=== PATIENT | female | born 1985 ===

== ENCOUNTER 2024-08-15 08:01 | Outpatient (CLI) | payer MEDICAID ==
[2024-08-15] VITALS (24 sets, daily range): BP systolic 90–113; BP diastolic 60–75; PULSE 64–101
== END 2024-08-15 23:59 | disposition home or self-care (01) ==
LOC: CARD DIAG 08:01
PROVIDERS: ATTEND Internal Medicine Interventional Cardiology
DX: R55 Syncope and collapse (principal)
CPT/HCPCS: 93660